=== PATIENT | male | born 1995 | race Caucasian/White ===

== ENCOUNTER 2022-03-14 16:28 | Inpatient (IN) | payer OTHER ==
[2022-03-14] MEDS ORDERED: Ondansetron PF 4 MG/2 ML Vial ONE ×2 (17:21→21:53)
[2022-03-14] MEDS ORDERED: Morphine 4 MG/ML VIAL ONE ×2 (17:21→19:18)
[2022-03-14 18:12] LABS: SARS-CoV-2 NAA Rapid Test Not Detected (NotDetected)
[2022-03-14] MEDS ORDERED: Senokot S 8.6-50 MG TAB PO PRN (18:35)
[2022-03-14] MEDS ORDERED: Acetaminophen 650 MG Suppository PR PRN (18:35)
[2022-03-14] MEDS ORDERED: Ketorolac Tromethamine 30 MG/ML VIAL ONE (19:19)
[2022-03-14 20:12] VITALS: BMI 21.9
[2022-03-14] MEDS: Lactated Ringer's 1,000 ML IV SCH (20:14)
[2022-03-14 20:18] LABS: HBCM Index 0.18 S/CO (0-0.79); Hep A IgM AB Non-Reactive (NonReactive); Hep A IgM S/CO 0.22 S/CO (0-0.79); Hep B Surf Ag Non-Reactive S/CO (NonReactive); Hepatitis B Core IgM Abs Non-Reactive (NonReactive)
[2022-03-14] MEDS: Senokot S 8.6-50 MG TAB PO SCH (20:21)
[2022-03-14 20:28] LABS: Hep C IgG Ab Reflex HepC Qnt (NonReactive); Hep C Index 8.91 S/CO (0-0.79)
[2022-03-14] MEDS ORDERED: Midazolam HCl 2 mg/2 ml Vial ONE (21:07)
[2022-03-14] MEDS ORDERED: Lidocaine 2% 6 ML SYR ONE (21:07)
[2022-03-14] MEDS ORDERED: HYDROmorphone 2 MG/ML VIAL ONE (21:07)
[2022-03-14] MEDS ORDERED: fentaNYL Citrate/PF 100 MCG/2 ML SYRINGE ONE (21:07)
[2022-03-14] MEDS ORDERED: SUGAMMADEX SODIUM 200 MG/2 ML VIAL ONE (21:08)
[2022-03-14] MEDS ORDERED: Famotidine/PF 20 mg/2ml Vial ONE (21:08)
[2022-03-14] MEDS ORDERED: Bupivacaine/Epinephrine 0.25% 30 ML VIAL ONE (21:22)
[2022-03-14] MEDS ORDERED: Hydrocortisone 1% Cream 30 GM TUBE ONE (21:24)
[2022-03-14] MEDS ORDERED: Chlorhexidine Gluconate 15 ML UDCUP SSP ONE (21:24)
[2022-03-14] MEDS ORDERED: Bacitracin Zinc Ointment 30 gm TUBE ONE (21:25)
[2022-03-14] MEDS ORDERED: Rocuronium Bromide 10 MG/ML (10ML VIAL) ONE (21:53)
[2022-03-14] MEDS ORDERED: Phenylephrine 10 MG/ML VIAL ONE ×2 (21:53)
[2022-03-14] MEDS ORDERED: Dexamethasone 20 MG/5 ML VIAL ONE (21:53)
[2022-03-14] MEDS ORDERED: Lidocaine 1% PF 5 ML VIAL ONE (21:53)
[2022-03-14] MEDS ORDERED: PROPOFOL 200 MG/20 ML VIAL ONE (21:53)
[2022-03-14] MEDS ORDERED: diphenhydrAMINE 50 MG/ML VIAL ONE (21:53)
[2022-03-14] MEDS ORDERED: Morphine 4 MG/ML VIAL SLOW IVP PRN ×2 (23:00)
[2022-03-14] MEDS ORDERED: Promethazine HCl 25 MG/ML VIAL IM PRN (23:33)
[2022-03-14] MEDS ORDERED: Ondansetron HCl/PF 4 MG/2 ML Vial IVP PRN (23:33)
[2022-03-14] MEDS ORDERED: Promethazine HCl 25 MG/ML VIAL IVPB PRN (23:33)
[2022-03-14] MEDS ORDERED: HYDROmorphone 2 MG/ML VIAL SLOW IVP PRN (23:33)
[2022-03-14] MEDS ORDERED: Meperidine HCl/PF 25 MG/ML VIAL SLOW IVP PRN (23:33)
[2022-03-14] MEDS ORDERED: Propofol 1,000 MG/100 ML VIAL IV ONE (23:34)
[2022-03-14] MEDS ORDERED: Ketorolac Tromethamine 60 MG/2 ML VIAL IM SCH (23:59)
[2022-03-15 00:03] LABS: Actual Bicarbonate (HCO3a) 24.8 mEq/L (22-28); Base Excess (BEa) 2.2 mEq/L (-2.0 to +3.0); CO2 Tension 32.9 mmHg (35.0-45.0); Calcium, Ionized (arterial) 1.09 mmol/L (1.12-1.30); Carboxyhemoglobin (COHb) 0.5 gm% (0.0-3.0); O2 Tension (PaO2), arterial 92.6 mmHg (80.0-100.0); Potassium - ABG Lab 3.49 mmol/L (3.70-5.30)
[2022-03-15 00:04] LABS: ALV-art Gradient 151.475 mmHg (0-20); Puncture Site RRA
[2022-03-15] MEDS: metroNIDAZOLE 500 MG in Premix Bag 1 BAG IVPB SCH ×4 (00:56→22:51)
[2022-03-15] MEDS ORDERED: Midazolam HCl 2 mg/2 ml Vial SLOW IVP PRN (00:58)
[2022-03-15] MEDS ORDERED: Fentanyl CADD 100 ML IV SCH (01:00)
[2022-03-15] MEDS ORDERED: Propofol BOLUS 1,000 MG/100 ML VIAL IV PRN (01:00)
[2022-03-15] MEDS ORDERED: Morphine 2 MG/ML VIAL SLOW IVP PRN (01:00)
[2022-03-15] MEDS ORDERED: Fentanyl BOLUS 250 ML IVPB PRN (01:00)
[2022-03-15] MEDS ORDERED: DISCONTINUE PREVIOUS NARCOTIC PAIN MEDICATIONS AND BENZODIAZEPINES FS SCH (01:00)
[2022-03-15] MEDS ORDERED: Propofol 1,000 MG/100 ML VIAL IV PRN (01:00)
[2022-03-15] MEDS ORDERED: Ventilator Sedation Protocol 1 EACH FS ONE (01:03)
[2022-03-15] MEDS ORDERED: Fentanyl CADD 100 ML ONE (01:22)
[2022-03-15] MEDS: Ampicillin/Sulbactam 3 GM in Sodium Chloride 0.9% 100 ML IVPB SCH ×4 (02:59→21:38)
[2022-03-15 04:42] LABS: Anion Gap 15 mmol/L (10-20); BUN (Urea Nitrogen) 7 mg/dL (8.9-20.6); Calc. Creatinine Clearance 142 mL/min (70-130); Calcium 8.3 mg/dL (7.8-10.44); Carbon Dioxide 26 mmol/L (22-29); Chloride 100 mmol/L (98-107); Estimated GFR 131; Glucose 117 mg/dL (70-105); Potassium 3.7 mmol/L (3.5-5.1); Sodium 137 mmol/L (136-145)
[2022-03-15 06:09] LABS: Band 40 % (5-11); Hemoglobin 15.3 g/dL (14.0-18.0); Lymphocytes 4 % (21-51); MDiff Complete? YES; Mean Corpuscular HGB CONC 33.8 g/dL (32.0-36.0); Mean Corpuscular Hemoglobin 32.1 pg (27.0-31.0); Mean Corpuscular Volume 94.8 fL (78.0-98.0); Mean Platelet Volume 6.9 fL (7.4-10.4); Monocytes 13 % (0-10); Neutrophil 43 % (42-75); Platelet Count 314 thou/uL (130-400); RBC Distribution Width 11.4 % (11.5-14.5); Red Blood Cell (RBC) Count 4.79 mill/uL (4.70-6.10); White Blood Cell (WBC) Count 20.6 thou/uL (4.8-10.8)
[2022-03-15] MEDS: Lactated Ringer's 1,000 ML IV SCH ×2 (08:11→13:51)
[2022-03-15] MEDS: Pantoprazole 40 MG VIAL IVP SCH (09:02)
[2022-03-15] MEDS: Polyethylene Glycol 3350 17 GM Packet PO SCH (09:11)
[2022-03-15] MEDS: Senokot S 8.6-50 MG TAB PO SCH ×2 (09:11→21:38)
[2022-03-15 11:33] LABS: Syphilis Antibody Nonreactive (Nonreactive); Syphilis Antibody Index 0.08 S/CO (<1.00 Non-Reactive)
[2022-03-15] MEDS ORDERED: Oxymetazoline HCl 0.05% (30 ML BOT) NS PRN (11:40)
[2022-03-15] MEDS: methylPREDNISolone Sod Succ/PF 125 MG/2 ML VIAL IVP SCH (11:58)
[2022-03-15] MEDS ORDERED: metroNIDAZOLE 500 MG/100 ML BAG ONE (13:55)
[2022-03-15] MEDS ORDERED: Ramipril 5 MG CAP ONE (15:27)
[2022-03-15] MEDS ORDERED: Pancrelipase DR 12,000 1 CAP ONE (15:28)
[2022-03-15] MEDS ORDERED: Vancomycin HCl 1.25 GM in Sodium Chloride 0.9% 250 ML 250 ML IVPB SCH (16:00)
[2022-03-15 16:06] LABS: HIV (1/2) Antibody/Antigen Non-Reactive (NonReactive); HIV 1/2 INDEX 0.08 S/CO (<1.00)
[2022-03-15 18:29] LABS: Syphilis Antibody Nonreactive (Nonreactive); Syphilis Antibody Index 0.17 S/CO (<1.00 Non-Reactive)
[2022-03-15] MEDS: Chlorhexidine Gluconate 15 ML UDCUP SSP SCH (21:38)
[2022-03-15] MEDS ORDERED: metroNIDAZOLE 500 MG TAB ONE (22:31)
[2022-03-16] MEDS ORDERED: Vancomycin 1 GM/200 ML BAG ONE (00:06)
[2022-03-16] MEDS: Vancomycin 1 GM in Premix Bag 1 BAG IVPB SCH ×2 (00:07→07:28)
[2022-03-16] MEDS: Ampicillin/Sulbactam 3 GM in Sodium Chloride 0.9% 100 ML IVPB SCH ×4 (03:16→20:46)
[2022-03-16] MEDS: Lactated Ringer's 1,000 ML IV SCH ×2 (04:10→07:28)
[2022-03-16 05:50] LABS: #Lymphocytes 1.6 thou/uL (1.20-3.40); #Monocytes 1.8 thou/uL (0.11-0.59); #Neutrophils 21.1 thou/uL (1.40-6.50); %Eosinophils 0.1 % (0.0-10.0); %Lymphocytes 6.4 % (21.0-51.0); %Monocytes 7.2 % (0.0-10.0); %Neutrophils 86.3 % (42.0-75.0); Hemoglobin 14.4 g/dL (14.0-18.0); Mean Corpuscular HGB CONC 32.6 g/dL (32.0-36.0); Mean Corpuscular Hemoglobin 31.3 pg (27.0-31.0); Mean Platelet Volume 6.3 fL (7.4-10.4); Platelet Count 357 thou/uL (130-400); RBC Distribution Width 11.4 % (11.5-14.5); Red Blood Cell (RBC) Count 4.61 mill/uL (4.70-6.10); White Blood Cell (WBC) Count 24.5 thou/uL (4.8-10.8)
[2022-03-16] MEDS ORDERED: metroNIDAZOLE 500 MG/100 ML BAG ONE (05:51)
[2022-03-16] MEDS: metroNIDAZOLE 500 MG in Premix Bag 1 BAG IVPB SCH ×3 (05:56→20:47)
[2022-03-16 06:09] LABS: Anion Gap 10 mmol/L (10-20); BUN (Urea Nitrogen) 12 mg/dL (8.9-20.6); Calc. Creatinine Clearance 148 mL/min (70-130); Calcium 8.1 mg/dL (7.8-10.44); Carbon Dioxide 28 mmol/L (22-29); Chloride 103 mmol/L (98-107); Estimated GFR 133; Glucose 121 mg/dL (70-105); Potassium 3.4 mmol/L (3.5-5.1); Sodium 138 mmol/L (136-145)
[2022-03-16] MEDS ORDERED: Ampicillin/Sulbactam 3 GM VIAL ONE (08:34)
[2022-03-16] MEDS: Polyethylene Glycol 3350 17 GM Packet PO SCH (08:41)
[2022-03-16] MEDS: Chlorhexidine Gluconate 15 ML UDCUP SSP SCH ×2 (08:41→20:46)
[2022-03-16] MEDS: Pantoprazole 40 MG VIAL IVP SCH (08:41)
[2022-03-16] MEDS: methylPREDNISolone Sod Succ/PF 125 MG/2 ML VIAL IVP SCH (08:41)
[2022-03-16] MEDS: Senokot S 8.6-50 MG TAB PO SCH ×2 (08:42→20:46)
[2022-03-16] MEDS ORDERED: Potassium Chloride 20 MEQ TAB PO SCH (12:00)
[2022-03-16] MEDS ORDERED: metroNIDAZOLE 500 MG TAB ONE (13:15)
[2022-03-16 15:37] LABS: Vancomycin, Trough 9.4 ug/mL
[2022-03-16] MEDS ORDERED: Vancomycin 1.5 GRAM/300 ML BAG 1.5 GM in Premix Bag 1 BAG IVPB SCH (16:00)
[2022-03-16] MEDS ORDERED: Ibuprofen 800 MG TAB PO PRN (20:00)
[2022-03-17] MEDS: Ampicillin/Sulbactam 3 GM in Sodium Chloride 0.9% 100 ML IVPB SCH ×4 (03:13→21:17)
[2022-03-17] MEDS: Vancomycin 1.5 GRAM/300 ML BAG 1.5 GM in Premix Bag 1 BAG IVPB SCH ×2 (03:14→11:20)
[2022-03-17 05:28] LABS: #Monocytes 1.7 thou/uL (0.11-0.59); #Neutrophils 13.7 thou/uL (1.40-6.50); %Basophils 0.1 % (0.0-1.0); %Lymphocytes 16.1 % (21.0-51.0); %Monocytes 9.4 % (0.0-10.0); %Neutrophils 74.4 % (42.0-75.0); Hemoglobin 14.5 g/dL (14.0-18.0); Mean Corpuscular HGB CONC 32.9 g/dL (32.0-36.0); Mean Corpuscular Hemoglobin 31.9 pg (27.0-31.0); Mean Corpuscular Volume 97.1 fL (78.0-98.0); Mean Platelet Volume 6.4 fL (7.4-10.4); Platelet Count 346 thou/uL (130-400); RBC Distribution Width 11.6 % (11.5-14.5); Red Blood Cell (RBC) Count 4.54 mill/uL (4.70-6.10); White Blood Cell (WBC) Count 18.4 thou/uL (4.8-10.8)
[2022-03-17] MEDS: metroNIDAZOLE 500 MG in Premix Bag 1 BAG IVPB SCH ×3 (05:30→21:17)
[2022-03-17 07:20] LABS: Anion Gap 12 mmol/L (10-20); BUN (Urea Nitrogen) 13 mg/dL (8.9-20.6); Calc. Creatinine Clearance 155 mL/min (70-130); Calcium 8.1 mg/dL (7.8-10.44); Carbon Dioxide 25 mmol/L (22-29); Chloride 109 mmol/L (98-107); Estimated GFR 134; Glucose 92 mg/dL (70-105); Potassium 3.8 mmol/L (3.5-5.1); Sodium 140 mmol/L (136-145)
[2022-03-17] MEDS: Chlorhexidine Gluconate 15 ML UDCUP SSP SCH ×2 (08:22→21:17)
[2022-03-17] MEDS: methylPREDNISolone Sod Succ/PF 125 MG/2 ML VIAL IVP SCH (08:22)
[2022-03-17] MEDS: Polyethylene Glycol 3350 17 GM Packet PO SCH (08:23)
[2022-03-17] MEDS: Pantoprazole 40 MG VIAL IVP SCH (08:23)
[2022-03-17] MEDS: Senokot S 8.6-50 MG TAB PO SCH ×2 (08:23→21:17)
[2022-03-17 18:37] LABS: HIV-1 Quantitative, RNA PCR <20 copies/mL (.)
[2022-03-17 19:27] LABS: Vancomycin, Trough 14.6 ug/mL
[2022-03-17 21:07] LABS: HCV RNA, log10 6.667 (.); Hep C PCR-Quant 4640000 IU/mL (.)
[2022-03-18] MEDS: Ampicillin/Sulbactam 3 GM in Sodium Chloride 0.9% 100 ML IVPB SCH ×4 (03:16→19:45)
[2022-03-18] MEDS: metroNIDAZOLE 500 MG in Premix Bag 1 BAG IVPB SCH ×3 (05:31→21:20)
[2022-03-18 06:01] LABS: #Basophils 0.1 thou/uL (0.0-0.2); #Eosinphils 0.1 thou/uL (0.0-0.7); #Lymphocytes 4.2 thou/uL (1.20-3.40); #Monocytes 1.7 thou/uL (0.11-0.59); #Neutrophils 8.2 thou/uL (1.40-6.50); %Basophils 0.4 % (0.0-1.0); %Eosinophils 0.5 % (0.0-10.0); %Lymphocytes 29.7 % (21.0-51.0); %Monocytes 11.6 % (0.0-10.0); %Neutrophils 57.8 % (42.0-75.0); Hemoglobin 16.2 g/dL (14.0-18.0); Mean Corpuscular HGB CONC 33.5 g/dL (32.0-36.0); Mean Corpuscular Hemoglobin 32.3 pg (27.0-31.0); Mean Corpuscular Volume 96.7 fL (78.0-98.0); Mean Platelet Volume 6.3 fL (7.4-10.4); Platelet Count 382 thou/uL (130-400); RBC Distribution Width 11.8 % (11.5-14.5); White Blood Cell (WBC) Count 14.1 thou/uL (4.8-10.8)
[2022-03-18] MEDS ORDERED: Senokot S 8.6-50 MG TAB PO PRN (06:30)
[2022-03-18] MEDS ORDERED: Polyethylene Glycol 3350 17 GM Packet PO PRN (06:30)
[2022-03-18] MEDS: methylPREDNISolone Sod Succ/PF 125 MG/2 ML VIAL IVP SCH (08:26)
[2022-03-18] MEDS: Chlorhexidine Gluconate 15 ML UDCUP SSP SCH ×2 (08:26→19:44)
[2022-03-18] MEDS: Pantoprazole 40 MG VIAL IVP SCH (08:27)
[2022-03-19] MEDS: Ampicillin/Sulbactam 3 GM in Sodium Chloride 0.9% 100 ML IVPB SCH ×2 (03:00→10:02)
[2022-03-19] MEDS: metroNIDAZOLE 500 MG in Premix Bag 1 BAG IVPB SCH (05:53)
[2022-03-19 06:15] LABS: #Eosinphils 0.2 thou/uL (0.0-0.7); #Lymphocytes 5.5 thou/uL (1.20-3.40); #Monocytes 1.4 thou/uL (0.11-0.59); #Neutrophils 6.9 thou/uL (1.40-6.50); %Basophils 0.2 % (0.0-1.0); %Eosinophils 1.7 % (0.0-10.0); %Lymphocytes 39.2 % (21.0-51.0); %Monocytes 10.2 % (0.0-10.0); %Neutrophils 48.7 % (42.0-75.0); Hemoglobin 16.7 g/dL (14.0-18.0); Mean Corpuscular HGB CONC 33.2 g/dL (32.0-36.0); Mean Corpuscular Hemoglobin 31.8 pg (27.0-31.0); Mean Platelet Volume 6.4 fL (7.4-10.4); Platelet Count 436 thou/uL (130-400); RBC Distribution Width 11.7 % (11.5-14.5); Red Blood Cell (RBC) Count 5.26 mill/uL (4.70-6.10); White Blood Cell (WBC) Count 14.1 thou/uL (4.8-10.8)
[2022-03-19] MEDS: Pantoprazole 40 MG VIAL IVP SCH (10:02)
[2022-03-19] MEDS: Chlorhexidine Gluconate 15 ML UDCUP SSP SCH (10:02)
[2022-03-19] MEDS: methylPREDNISolone Sod Succ/PF 125 MG/2 ML VIAL IVP SCH (10:02)
[2022-03-19] MEDS ORDERED: cefTRIAXone\\ROCEPHIN 2 GM in Sodium Chloride 0.9% 100 ML IVPB SCH (13:00)
[2022-03-19 15:43] VITALS: BP 112/71; TEMP 97.9
== END 2022-03-19 18:40 | DRG 872 ==
LOC: ERS 16:28 → SURG A 18:14 → EEVIPCON 18:14 → CCU 03-15 00:41 → SURG A 03-15 15:08
PROVIDERS: ADMIT Family Medicine; ATTEND Family Medicine
PROC: 0J910ZZ Drainage of Face Subcutaneous Tissue and Fascia, Open Approach (ICD-10-PCS; principal; 2022-03-14)
PROC: 0CDXXZ1 Extraction of Lower Tooth, Multiple, External Approach (ICD-10-PCS; 2022-03-14)
PROC: 0CTW0Z0 Resection of Upper Tooth, Single, Open Approach (ICD-10-PCS; 2022-03-14)
PROC: 3E03329 Introduction of Other Anti-infective into Peripheral Vein, Percutaneous Approach (ICD-10-PCS; 2022-03-14)
DX: A41.9 Sepsis, unspecified organism (principal); K12.2 Cellulitis and abscess of mouth; J39.0 Retropharyngeal and parapharyngeal abscess; Z20.822 Contact with and (suspected) exposure to COVID-19; K04.7 Periapical abscess without sinus; J45.909 Unspecified asthma, uncomplicated; D75.1 Secondary polycythemia; E87.6 Hypokalemia; B19.20 Unspecified viral hepatitis C without hepatic coma; Z78.1 Physical restraint status; Z88.2 Allergy status to sulfonamides; Z87.891 Personal history of nicotine dependence
CPT/HCPCS: 36415; 36600; 71045; 80048; 80074; 80202; 82805; 85025; 86780; 87070; 87077; 87205; 87389; 87522; 87536; 94002; 94003; 96372; 96374; 96375; 96376; C9113; J0295; J0696; J1100; J1170; J1200; J1885; J2250; J2270; J2370; J2405; J2704; J2930; J3010; J3370; J3490; J7050; J7120; S0028; U0002